=== PATIENT | male | born 2000 | race Two or more races ===

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

== ENCOUNTER 2021-02-17 23:38 | Emergency (ER) | payer OTHER ==
[2021-02-18] MEDS ORDERED: Tetracaine HCl/PF 0.5% 4 ML Bottle ONE (00:08)
[2021-02-18] MEDS ORDERED: Sulfacetamide 10% Ophth Soln 15 ML Bottle EYERT ONE (00:18)
[2021-02-18] MEDS ORDERED: diphenhydrAMINE 50 MG Cap PO ONE (00:19)
--- NOTE | 2021-02-18 00:23 | EDM.PDOC ---
ED HPI GENERAL MEDICAL PROBLEM - General Chief Complaint: ENT Problem Stated Complaint: eye pain and itching Time Seen by Provider: 02/18/21 00:13 - History of Present Illness INITIAL COMMENTS - FREE TEXT/NARRATIVE: HISTORY AND PHYSICAL: History of present illness: 20-year-old who presents ER today with itching and discomfort to the right eye x1 to 2 days. Patient reports that he used an eyedrop [id number] today without any significant change. Patient denies any change in vision. Patient has any pain or discomfort. Patient denies any drainage. Patient ports that yesterday he noticed some redness to the lateral aspect of his eye and today he noticed a little bit of swelling as well. Patient has recent fevers, shakes, chills, nausea, vomiting, diarrhea, dysuria, frequency, urgency. Review of systems: As per history of present illness and below otherwise all systems reviewed and negative. Past medical history: As per history of present illness and as reviewed below otherwise noncontributory. Surgical history: As per history of present illness and as reviewed below otherwise noncontributory. Social history: No reported history of drug abuse. Family history: As per history of present illness and as reviewed below otherwise noncontributory. Physical exam: This patient was seen and evaluated during the 2019 SARS-CoV-2 novel coronavirus pandemic period. Community viral transmission is ongoing at time of this encounter and the emergency department is operating under pandemic response procedures. Constitutional: Patient is oriented to person, place, and time. Appears well- developed and well-nourished. No distress. HEENT: Moist mucous membranes Head: Normocephalic and atraumatic Eyes: Right eye exhibits no discharge. Left eye exhibits no discharge. No scleral icterus Neck: Normal range of motion. No tracheal deviation present. Cardiovascular: Normal rate and regular rhythm. Pulmonary: Effort normal, no respiratory distress. Abdominal: No distention Musculoskeletal: Normal range of motion Neurologic: Alert and oriented to person, place and time. Skin: [place], warm and dry. Psychiatric: Normal mood and affect. Behavior is normal. Judgment and thought content normal. Nursing note and vital signs have been reviewed LIDS & LASHES: Normal. PUPILS: Pupils equal and reactive. EOM's: Intact. LID EVERSION: No foreign body. CONJUNCTIVAE: Conjunctival injection noted in the right eye in the lateral aspect with a small area of swelling. CORNEA: No foreign body noted, no infiltrate. ANTERIOR CHAMBER: No foreign body, No tear in iris,No hyphema Diagnostics: [] Therapeutics: [] Assessment and plan: 20-year-old who presents ER today with signs and symptoms consistent with an allergic conjunctivitis. Patient will be given Bleph-10 secondary to the small swelling/blistering noted in the medial aspect of the injected conjunctiva however feel that this is more likely inflammatory from allergic reaction. Patient was given Benadryl and instructed to follow-up with the eye doctors for reevaluation. Visual acuity noted Reassessment at the time of disposition demonstrates that the patient is in no acute distress. The patient has remained stable throughout the entire ED visit and is without objective evidence for acute process requiring urgent intervention or hospitalization. The patient is stable for discharge, counseling is provided as documented above, discussed symptomatic treatment and specific conditions for return. I have spoken with the patient/caregiver and discussed todays findings, in addition to providing specific details for the plan of care. Questions are answered and there is agreement with the plan. Definitive disposition and diagnosis as appropriate pending reevaluation and review of above. - Related Data Allergies Allergy/AdvReac Type Severity Reaction Status Date / Time No Known Allergies Allergy Verified 06/22/20 07:30 Home Meds: Home Meds Amoxicillin 875 mg PO BID #24 tab 06/22/20 [Rx] Past Medical History - Past Health History Medical/Surgical History: Denies Medical/Surgical History - Past Surgical History HEENT Surgical History: Reports: Other (See Below) Other HEENT Surgeries/Procedures: surgery to ear Social & Family History - Family History Family Medical History: No Pertinent Family History - Caffeine Use Caffeine Use: Reports: None ED ROS GENERAL - Review of Systems Review Of Systems: See Below ED EXAM, GENERAL - Physical Exam Exam: See Below Course - Orders/Labs/Meds Orders: Active Orders 24 hr Category Date Time Status Visual Acuity [Vision Test] [RC] ASDIRECTED Care 02/18/21 00:19 Ordered diphenhydrAMINE [Benadryl] Med 02/18/21 00:19 Once 50 mg PO ONETIME ONE Medication Orders Diphenhydramine HCl (Diphenhydramine 50 Mg Cap) 50 mg PO ONETIME ONE Stop: 02/18/21 00:20 Meds: Medications Generic Name Dose Route Start Last Admin Trade Name Freq PRN Reason Stop Dose Admin Diphenhydramine HCl 50 mg 02/18/21 00:19 Diphenhydramine 50 Mg Cap PO 02/18/21 00:20 ONETIME ONE Discontinued Medications Generic Name Dose Route Start Last Admin Trade Name Freq PRN Reason Stop Dose Admin Sulfacetamide 1 ml 02/18/21 00:18 Sulfacetamide 10% Ophth Soln 15 Ml Bottle EYERT 02/18/21 00:19 ONETIME ONE Tetracaine HCl Confirm 02/18/21 00:08 Tetracaine Hcl/Pf 0.5% 4 Ml Bottle Administered 02/18/21 00:09 Dose 4 ml .ROUTE .STK-MED ONE Departure - Departure Time of Disposition: 00:22 Disposition: Home, Self-Care 01 Condition: Good Clinical Impression: Allergic conjunctivitis Qualifiers: Laterality: right Qualified Code(s): H10.11 - Acute atopic conjunctivitis, right eye - Discharge Information Instructions: Allergic Conjunctivitis, Adult, [id number] Referrals: PCP,None [Primary Care Provider] - Additional Instructions: You were seen and evaluated in ER today secondary to irritation and redness to your right eye. This is consistent with an allergic conjunctivitis. He will be given an antibiotic drop to utilize and then [id number] Benadryl for itching. He can take Benadryl 25 mg every 6 hours as needed. Please make an appointment to see the eye doctor on Saturday if your symptoms without relief by then. Please return to the ER if you start noticing any change in your vision or any new or concerning symptoms. The following information is given to patients seen in the emergency department who are being discharged to home. This information is to outline your options for follow-up care. We provide all patients seen in our emergency department with a follow-up referral. The need for follow-up, as well as the timing and circumstances, are variable depending upon the specifics of your emergency department visit. If you don't have a primary care physician on staff, we will provide you with a referral. We always advise you to contact your personal physician following an emergency department visit to inform them of the circumstance of the visit and for follow-up with them and/or the need for any referrals to a consulting specialist. The emergency department will also refer you to a specialist when appropriate. This referral assures that you have the opportunity for follow-up care with a specialist. All of these measure are taken in an effort to provide you with optimal care, which includes your follow-up. Under all circumstances we always encourage you to contact your private physician who remains a resource for coordinating your care. When calling for follow-up care, please make the office aware that this follow-up is from your recent emergency room visit. If for any reason you are refused follow-up, please contact the [facility] Emergency Department at and asked to speak to the emergency department charge nurse. [facility] [address] [place] [id number] [id number] - My Orders Last 24 Hours: My Active Orders 02/18/21 00:19 Visual Acuity [Vision Test] [RC] ASDIRECTED diphenhydrAMINE [Benadryl] 50 mg PO ONETIME ONE - Assessment/Plan Last 24 Hours: My Active Orders 02/18/21 00:19 Visual Acuity [Vision Test] [RC] ASDIRECTED diphenhydrAMINE [Benadryl] 50 mg PO ONETIME ONE
== END 2021-02-18 01:19 | disposition home or self-care (01) ==
LOC: MW.ED 23:38
DX: H10.11 Acute atopic conjunctivitis, right eye (principal)
CPT/HCPCS: 99283; A9270

== ENCOUNTER 2021-02-19 18:46 | Emergency (ER) | payer OTHER ==
[2021-02-19] MEDS ORDERED: Tetracaine HCl/PF 0.5% 4 ML Bottle EYEBOTH ONE (20:18)
[2021-02-19] MEDS ORDERED: Tetracaine HCl/PF 0.5% 4 ML Bottle ONE (20:18)
--- NOTE | 2021-02-19 20:35 | EDM.PDOC ---
ED HPI GENERAL MEDICAL PROBLEM - General Chief Complaint: ENT Problem Stated Complaint: VISION IN RIGHT EYE GETTING WORSE Time Seen by Provider: 02/19/21 19:32 Source of Information: Reports: Patient History Limitations: Reports: No Limitations - History of Present Illness INITIAL COMMENTS - FREE TEXT/NARRATIVE: HISTORY AND PHYSICAL: History of present illness: Patient is a 20-year-old male who presents to the ED today with concern of possible worsening eye infection of his right eye. 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 Patient states that he had left town so was unable to get to the pharmacy to get the medications. Patient states that he feels as if his vision is slightly more blurry but is still able to see. Patient denies any trauma or injury. Patient states he continues to have worsening redness of his right eye. Patient denies fever, chills, chest pain, shortness of breath, or cough. Denies headache, neck stiff ness, change in vision, syncope, or near syncope. Denies nausea, vomiting, abdominal pain, diarrhea, constipation, or dysuria. Has not noted any blood in urine or stool. Patient has been eating and drinking appropriately. Review of systems: As per history of present illness and below otherwise all systems reviewed and negative. Past medical history: As per history of present illness and as reviewed below otherwise noncontributory. Surgical history: As per history of present illness and as reviewed below otherwise noncontributory. Social history: See social history for further information Family history: As per history of present illness and as reviewed below otherwise noncontributory. Physical exam: General: Patient is alert, oriented, and in no acute distress. Patient sitting comfortably on exam table. Vitals stable and reviewed by me. HEENT: Visual acuity intact. Tonopen pressure of right eye 15. EOMS intact without pain or difficulty. Fluroscene stain performed without evidence of corneal abrasion/ulceration. Bilateral upper and lower lids everted without sign of foreign body. Negative for corneal opacity, hyphema, or hypopyon. Patient does have an inflamed pinguecula of the lateral right eye with erythema surrounding the pinguecula. No crusting noted to the eye. Atraumatic, normocephalic, pupils equal and reactive bilaterally, negative for conjunctival pallor or scleral icterus, mucous membranes moist, TMs normal bilaterally, throat clear, neck supple, nontender, trachea midline. No drooling or trismus noted. No meningeal signs. No hot potato voice noted. Lungs: Clear to auscultation, breath sounds equal bilaterally, chest nontender. Heart: S1S2, regular rate and rhythm without overt murmur Abdomen: Soft, nondistended, nontender. Negative for masses or hepatosplenomegaly. Negative for costovertebral tenderness. Pelvis: Stable nontender. Genitourinary: Deferred. Rectal: Deferred. Skin: Intact, warm, dry. No lesions or rashes noted. Extremities: Atraumatic, negative for cords or calf pain. Neurovascular unremarkable. Neuro: Awake, alert, oriented. Cranial nerves II through XII unremarkable. Cerebellum unremarkable. Motor and sensory unremarkable throughout. Exam nonfocal. Notes: On chart review from patient seen in 02/17/2021, it was thought that patient could possibly have allergic conjunctivitis and was prescribed sulfacetamide ophthalmic and Benadryl. At this time, pharmacies are currently not open as it is Saturday and they are closed. On exam, patient does appear to have an inflamed pinguecula versus possible allergic/bacterial conjunctivitis. Our facility does not have this medication but the instrument machine does have erythromycin ophthalmic. I will send a prescription for erythromycin ophthalmic for patient to apply medication today to affected eye given any possible overlying infection. Voices understanding and is agreeable to plan of care. Denies any further questions or concerns at this time. Diagnostics: Fluorescein Wood's lamp Therapeutics: Tetracaine ophthalmic Prescription: Erythromycin ophthalmic Impression: Inflamed pinguecula, right eye, possible conjunctivitis Plan: 1. Apply medication to affected eye as prescribed. You can alternate ibuprofen and Tylenol as directed for pain and discomfort. 2. Follow-up with an national opelint analyst/parking lot chauffeur for formal eye exam as discussed. Also follow-up with your primary care provider as discussed. Return to the ED as needed and as discussed. Definitive disposition and diagnosis as appropriate pending reevaluation and review of above. right eye Pain Score (Numeric/FACES): 4 - Related Data Allergies Allergy/AdvReac Type Severity Reaction Status Date / Time No Known Allergies Allergy Verified 02/19/21 19:17 Home Meds: Home Meds Amoxicillin 875 mg PO BID #24 tab 06/22/20 [Rx] Sulfacetamide [Sulfacetamide Sodium] 2 drop EYERT Q6H 5 Days #1 bottle 02/18/21 [Rx] diphenhydrAMINE [Benadryl] 50 mg PO Q6HR PRN #20 cap 02/18/21 [Rx] Past Medical History - Past Health History Medical/Surgical History: Denies Medical/Surgical History - Infectious Disease History Infectious Disease History: Reports: None - Past Surgical History HEENT Surgical History: Reports: Other (See Below) Other HEENT Surgeries/Procedures: surgery to ear Social & Family History - Family History Family Medical History: No Pertinent Family History - Caffeine Use Caffeine Use: Reports: None ED ROS GENERAL - Review of Systems Review Of Systems: Comprehensive ROS is negative, except as noted in HPI. ED EXAM, GENERAL - Physical Exam Exam: See Below (See dictation) Course - Vital Signs Last Recorded V/S: Last Vital Signs Temp 98.0 F 02/19/21 19:05 Pulse 83 02/19/21 19:05 Resp 18 02/19/21 19:05 BP 124/66 02/19/21 19:05 Pulse Ox 98 02/19/21 19:05 - Orders/Labs/Meds Meds: Medications Discontinued Medications Generic Name Dose Route Start Last Admin Trade Name Sundar PRN Reason Stop Dose Admin Tetracaine HCl 2 ml 02/19/21 20:18 02/19/21 20:23 Tetracaine Hcl/Pf 0.5% 4 Ml Bottle EYEBOTH 02/19/21 20:19 2 drop ASDIRECTED ONE Administration Tetracaine HCl Confirm 02/19/21 20:18 02/19/21 20:22 Tetracaine Hcl/Pf 0.5% 4 Ml Bottle Administered 02/19/21 20:19 Not Given Dose 4 ml .ROUTE .STK-MED ONE Departure - Departure Time of Disposition: 20:34 Disposition: Home, Self-Care 01 Clinical Impression: Pinguecula of right eye Conjunctivitis Qualifiers: Conjunctivitis type: unspecified Laterality: right Qualified Code(s): H10.9 - Unspecified conjunctivitis - Discharge Information Instructions: Viral Conjunctivitis, Adult Referrals: PCP,None [Primary Care Provider] - Forms: ED Department Discharge Additional Instructions: The following information is given to patients seen in the emergency department who are being discharged to home. This information is to outline your options for follow-up care. We provide all patients seen in our emergency department with a follow-up referral. The need for follow-up, as well as the timing and circumstances, are variable depending upon the specifics of your emergency department visit. If you don't have a primary care physician on staff, we will provide you with a referral. We always advise you to contact your personal physician following an emergency department visit to inform them of the circumstance of the visit and for follow-up with them and/or the need for any referrals to a consulting specialist. The emergency department will also refer you to a specialist when appropriate. This referral assures that you have the opportunity for follow-up care with a specialist. All of these measure are taken in an effort to provide you with optimal care, which includes your follow-up. Under all circumstances we always encourage you to contact your private physician who remains a resource for coordinating your care. When calling for follow-up care, please make the office aware that this follow-up is from your recent emergency room visit. If for any reason you are refused follow-up, please contact the [facility] Emergency Department at and asked to speak to the emergency department charge nurse. [facility] [address] [place] [id number] [place] [address] 1. Apply medication to affected eye as prescribed. You can alternate ibuprofen and Tylenol as directed for pain and discomfort. 2. Follow-up with an national opelint analyst/parking lot chauffeur for formal eye exam as discussed. Also follow-up with your primary care provider as discussed. Return to the ED as needed and as discussed. Sepsis Event Note (ED) - Evaluation Sepsis Screening Result: No Definite Risk - Focused Exam Vital Signs: Vital Signs Temp Pulse Resp BP Pulse Ox 02/19/21 19:05 98.0 F 83 18 124/66 98
== END 2021-02-19 20:36 | disposition home or self-care (01) ==
LOC: MW.ED 18:46
DX: H10.9 Unspecified conjunctivitis (principal); H11.151 Pinguecula, right eye
CPT/HCPCS: 99283

== ENCOUNTER 2021-06-03 20:24 | Observation (INO) | payer OTHER ==
[2021-06-03] MEDS ORDERED: fentaNYL 50 MCG/ML SDV IVPUSH ONE (20:28)
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
--- NOTE | 2021-06-03 20:40 | PCM.EKG ---
#1 Interpretation EKG Date: 06/03/21 Time: 20:32 Rhythm: NSR Rate (Beats/Min): 70 [place]: Normal P-Wave: Present QRS: Normal ST-T: Normal QT: Normal Comparison: NA - No Prior EKG EKG Interpretation Comments: Sinus Rhythm with nonspecific TWI
[2021-06-03 21:02] LABS: BLOOD UREA NITROGEN,BUN 14 mg/dL (7.0-18.0); CARBON DIOXIDE,CO2 27.1 mmol/L (21.0-32.0); CHLORIDE,CL 104 mmol/L (98-107); GLUCOSE RANDOM 109 mg/dL (74-106); LIPASE 49 U/L (73-393); POTASSIUM,K 3.2 mmol/L (3.5-5.1); SODIUM,NA 141 mmol/L (136-148)
[2021-06-03] MEDS ORDERED: Iopamidol 755 MG/ML 500 ML Multipack Bottle IVPUSH ONE (21:33)
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
[2021-06-04] MEDS ORDERED: Aspirin 81 MG Tab.Chew PO ONE (01:36)
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
== END 2021-06-04 11:45 | disposition home or self-care (01) ==
LOC: MW.ED 20:24 → MW.MS 06-04 01:43
PROVIDERS: ADMIT Surgery; ATTEND Surgery
DX: S26.91XA Contusion of heart, unspecified with or without hemopericardium, initial encounter (principal); V89.2XXA Person injured in unspecified motor-vehicle accident, traffic, initial encounter; Z20.822 Contact with and (suspected) exposure to COVID-19
CPT/HCPCS: 36415; 70450; 70498; 71045; 71260; 72125; 72170; 73562; 80053; 81003; 83690; 84484; 85025; 87635; 93005; 96374; 99285; A9270; G0378; J3010; Q9967; U0002

== ENCOUNTER 2021-06-05 16:18 | Emergency (ER) | payer OTHER ==
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
[2021-06-05 17:18] LABS: BLOOD UREA NITROGEN,BUN 17 mg/dL (7.0-18.0); CARBON DIOXIDE,CO2 29.7 mmol/L (21.0-32.0); CHLORIDE,CL 102 mmol/L (98-107); GLUCOSE RANDOM 122 mg/dL (74-106); POTASSIUM,K 3.4 mmol/L (3.5-5.1); SODIUM,NA 140 mmol/L (136-148)
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
== END 2021-06-05 17:48 | disposition home or self-care (01) ==
LOC: MW.ED 16:18
DX: S06.0X0A Concussion without loss of consciousness, initial encounter (principal); V47.5XXA Car driver injured in collision with fixed or stationary object in traffic accident, initial encounter
CPT/HCPCS: 36415; 70450; 70450-26; 80048; 85025; 99284-25

== ENCOUNTER 2023-10-28 22:44 | Emergency (ER) | payer OTHER ==
[2023-10-28] MEDS: Alum Hydro/Mag Hydro/Simeth XS 15 ML, Lidocaine 2% 5 ML PO ONE (23:19)
[2023-10-28] MEDS: Sodium Chloride 0.9% 1,000 ML IV ONE (23:19)
[2023-10-28] MEDS: Famotidine 20 MG/2 ML SDV IVPUSH ONE (23:20)
[2023-10-28] MEDS: Ondansetron 4 MG/2 ML SDV IVPUSH ONE (23:20)
[2023-10-28 23:27] LABS: BASOPHILS ABSOLUTE AUTO 0.02 K/uL (0.00-0.20); BASOPHILS PERCENT AUTO 0.3 % (0.0-1.0); EOSINOPHILS ABSOLUTE AUTO 0.06 K/uL (0.00-0.45); EOSINOPHILS PERCENT AUTO 0.8 % (0.0-6.0); HEMATOCRIT 43.7 % (42.0-52.0); IMMATURE GRAN ABSOLUTE AUTO 0.02 K/uL (0.00-0.05); IMMATURE GRAN PERCENT AUTO 0.3 % (0.0-0.4); LYMPHOCYTES ABSOLUTE AUTO 1.41 K/uL (1.00-4.80); LYMPHOCYTES PERCENT AUTO 18.8 % (24.0-44.0); MEAN CORPUSCULAR HEMOGLOBIN 29.4 pg (28.0-32.0); MEAN CORPUSCULAR HGB CONC 34.3 g/dL (32.0-36.0); MEAN CORPUSCULAR VOLUME 85.5 fL (83.0-99.0); MEAN PLATELET VOLUME 9.9 fL (9.4-12.4); MONOCYTES ABSOLUTE AUTO 0.56 K/uL (0.00-0.80); MONOCYTES PERCENT AUTO 7.5 % (0.0-8.0); NEUTROPHILS ABSOLUTE AUTO 5.43 K/uL (1.80-7.70); NEUTROPHILS PERCENT AUTO 72.3 % (41.0-71.0); PLATELET COUNT,PLT 206 K/uL (150-400); RED BLOOD CELL COUNT 5.11 M/uL (4.52-5.90)
[2023-10-28 23:42] LABS: INR 1.03 (0.86-1.11); PTT,PARTIAL THROMBOPLSTIN TIME 30.4 SEC (23.9-30.7)
[2023-10-28 23:53] LABS: A/G RATIO 0.8 (0.9-1.6); ALBUMIN 3.4 g/dL (3.4-5.0); BILIRUBIN TOTAL 0.3 mg/dL (0.2-1.0); CARBON DIOXIDE,CO2 27.9 mmol/L (21.0-32.0); CREATININE 1.1 mg/dL (0.8-1.3); EST CRCL DRUG DOSING (CG) 91.63 mL/min; MAGNESIUM 2.2 mg/dL (1.8-2.4); POTASSIUM,K 4.1 mmol/L (3.5-5.1); PROTEIN TOTAL,TP 7.6 g/dL (6.4-8.2)
[2023-10-29] MEDS: Iopamidol 755 MG/ML 500 ML Multipack Bottle IVPUSH ONE (00:04)
[2023-10-29 00:05] LABS: CORONAVIRUS COVID-19 NAA NEGATIVE (NEGATIVE); INFLUENZA A NAA NEGATIVE (NEGATIVE); INFLUENZA B NAA NEGATIVE (NEGATIVE)
== END 2023-10-29 00:58 | disposition home or self-care (01) ==
LOC: MW.ED 22:44
DX: K52.9 Noninfective gastroenteritis and colitis, unspecified (principal); Z75.8 Other problems related to medical facilities and other health care; Z79.899 Other long term (current) drug therapy
CPT/HCPCS: 0240U; 36415; 74177; 80053; 82550; 83690; 83735; 85025; 85610; 85730; 96361; 96374; 96375; 99284; A9270; J2405; J3490; J7030; Q9967